=== PATIENT | female | born 1990 | race Caucasian/White ===

== ENCOUNTER 2016-11-07 16:45 | Emergency (ER) | payer OTHER ==
[~2016-11-07] VITALS: Ht 154.9 cm; Wt 53.8 kg
[2016-11-07 17:31] LABS: ADD MIUA? YES; BILIRUBIN NEGATIVE; BLOOD MODERATE; COLOR YELLOW ((YELLOW)); GLUCOSE (STRIP) NEGATIVE; KETONES NEGATIVE; LEUKOCYTES NEGATIVE; NITRITE NEGATIVE; PROTEIN (STRIP) NEGATIVE; SPECIFIC GRAVITY 1.016 (1.000-1.030); UROBILINOGEN 0.2 MG/DL (0.2-1.0)
[2016-11-07 17:41] LABS: BACTERIA RARE /HPF; EPITHELIAL CELLS 2+ /HPF; MUCUS NONE SEEN /LPF; RED BLOOD CELLS 0-5 /HPF (0-5); UCUL ADDED? NO; WHITE BLOOD CELLS 0-5 /HPF (0-5)
[2016-11-07 18:01] LABS: HEMATOCRIT 44.1 % (36.0-46.0); MCH 28.8 PG (29.0-34.0); MCHC 32.4 G/DL (30.0-36.0); MCV 88.7 FL (83-99); MEAN PLAT.VOLUME 9.2 uM^3 (9.5-12.4); PLATELET COUNT 366 K/uL (156-360); RBC DIS.WIDTH-CV 12.5 % (11.8-14.6); RBC DIS.WIDTH-SD 40.3 % (39-53); RED BLOOD COUNT 4.97 M/uL (3.80-5.20); WHITE BLOOD COUNT 8.7 K/uL (4.1-10.2)
[2016-11-07 18:14] LABS: CHLORIDE 101 mEq/L (99-109); POTASSIUM 4.1 mEq/L (3.7-5.4); SODIUM 137 mEq/L (136-147)
[2016-11-07 18:16] LABS: GLUCOSE 71 mg/dL (70-99)
[2016-11-07 18:18] LABS: ANION GAP 9 MEQ/L (2-14); TOTAL BILIRUBIN 0.4 mg/dL (0.0-1.0)
[2016-11-07 18:20] LABS: ALKALINE PHOSPHATASE 63 IU/L (3-129)
[2016-11-07 18:21] LABS: UREA NITROGEN (BUN) 17 mg/dL (9-23)
[2016-11-07 18:23] LABS: LIPASE 28 U/L (1.0-51.0)
[2016-11-07 18:31] LABS: QUANTITATIVE HCG < 4.0 MIU/ML
[2016-11-07 18:33] LABS: GFR ESTIMATE (CALCULATED) > 59 mL/min/
[2016-11-07] MEDS ORDERED: NAPROSYN500 MG PO (20:15)
[2016-11-07 20:35] VITALS: BP 127/68
== END 2016-11-07 20:36 | disposition home or self-care (01) ==
LOC: EME 16:45 → RME 16:45
DX: N83.201 Unspecified ovarian cyst, right side (principal); R31.9 Hematuria, unspecified; Z86.19 Personal history of other infectious and parasitic diseases; F17.200 Nicotine dependence, unspecified, uncomplicated
CPT/HCPCS: 74176; 80053; 81003; 83690; 84702; 85027; 99281; 99284

== ENCOUNTER 2017-09-02 13:22 | Emergency (ER) | payer OTHER ==
[~2017-09-02] VITALS: Ht 157.5 cm; Wt 54.4 kg
[~2017-09-02 13:22] MED LIST: NAPROSYN500 MG PO
[2017-09-02] MEDS ORDERED: DEBROX15 ML LEFT EAR (14:53)
[2017-09-02] MEDS ORDERED: MOTRIN800 MG PO (14:53)
[2017-09-02] MEDS ORDERED: FLONASE16 G1 BOTH NARES (14:53)
[2017-09-02] MEDS ORDERED: AUGMENTIN875 MG PO (14:53)
[2017-09-02 15:23] VITALS: BP 115/73
== END 2017-09-02 15:26 | disposition home or self-care (01) ==
LOC: EME 13:22 → EXP 13:22
DX: R59.0 Localized enlarged lymph nodes (principal); J32.9 Chronic sinusitis, unspecified; H61.22 Impacted cerumen, left ear
CPT/HCPCS: 99281; 99283

== ENCOUNTER 2017-11-03 20:29 | Emergency (ER) | payer OTHER ==
[~2017-11-03] VITALS: Ht 160 cm; Wt 55.7 kg
[~2017-11-03 20:29] MED LIST changes: +AUGMENTIN875 MG PO; +DEBROX15 ML LEFT EAR; +FLONASE16 G1 BOTH NARES; +MOTRIN800 MG PO
[2017-11-03 21:29] LABS: APPEARANCE CLEAR ((CLEAR)); BILIRUBIN NEGATIVE; BLOOD NEGATIVE; COLOR STRAW ((YELLOW)); GLUCOSE (STRIP) NEGATIVE; KETONES NEGATIVE; LEUKOCYTES NEGATIVE; NITRITE NEGATIVE; PROTEIN (STRIP) NEGATIVE; SPECIFIC GRAVITY 1.015 (1.000-1.030); UCUL ADDED? NO; UROBILINOGEN 0.2 MG/DL (0.2-1.0)
[2017-11-03 21:34] LABS: HEMATOCRIT 41.4 % (36.0-46.0); HEMOGLOBIN 14.1 G/DL (11.9-15.5); MCH 29.4 PG (29.0-34.0); MCHC 34.1 G/DL (30.0-36.0); MCV 86.4 FL (83-99); PLATELET COUNT 421 K/uL (156-360); RBC DIS.WIDTH-CV 13.4 % (11.8-14.6); RBC DIS.WIDTH-SD 42.5 % (39-53); RED BLOOD COUNT 4.79 M/uL (3.80-5.20); WHITE BLOOD COUNT 12.9 K/uL (4.1-10.2)
[2017-11-03 21:43] LABS: ALBUMIN 4.6 g/dL (3.2-4.8); CHLORIDE 106 mEq/L (99-109); POTASSIUM 3.9 mEq/L (3.7-5.4); SODIUM 139 mEq/L (136-147)
[2017-11-03 21:46] LABS: GLUCOSE 83 mg/dL (70-99); TOTAL PROTEIN 7.4 g/dL (6.4-8.3)
[2017-11-03 21:47] LABS: TOTAL BILIRUBIN 0.3 mg/dL (0.0-1.0)
[2017-11-03 21:49] LABS: ALKALINE PHOSPHATASE 48 IU/L (3-129); CREATININE 0.8 mg/dL (0.6-1.3); GFR ESTIMATE (CALCULATED) > 59 mL/min/
[2017-11-03 21:50] LABS: UREA NITROGEN (BUN) 11 mg/dL (9-23)
[2017-11-03 21:51] LABS: AST (GOT) 40 IU/L (2-34)
[2017-11-03 21:52] LABS: ALT (GPT) 63 IU/L (3-49)
[2017-11-03 21:58] LABS: QUANTITATIVE HCG 49.9 MIU/ML
[2017-11-04 01:38] VITALS: BP 111/80
== END 2017-11-04 01:38 | disposition home or self-care (01) ==
LOC: EME 20:29
DX: O26.891 Other specified pregnancy related conditions, first trimester (principal); R10.2 Pelvic and perineal pain; Z3A.00 Weeks of gestation of pregnancy not specified; F17.200 Nicotine dependence, unspecified, uncomplicated
CPT/HCPCS: 76705; 76801; 80053; 81003; 84702; 85027; 99281; 99284

== ENCOUNTER 2017-11-20 11:00 | Emergency (ER) | payer OTHER ==
[~2017-11-20] VITALS: Ht 160 cm; Wt 53.9 kg
[2017-11-20 11:39] LABS: HEMATOCRIT 37.2 % (36.0-46.0); HEMOGLOBIN 13.1 G/DL (11.9-15.5); MCH 30.5 PG (29.0-34.0); MCHC 35.2 G/DL (30.0-36.0); MCV 86.7 FL (83-99); PLATELET COUNT 399 K/uL (156-360); RBC DIS.WIDTH-SD 40.7 % (39-53); RED BLOOD COUNT 4.29 M/uL (3.80-5.20); WHITE BLOOD COUNT 13.4 K/uL (4.1-10.2)
[2017-11-20 11:50] LABS: CHLORIDE 109 mEq/L (99-109); POTASSIUM 3.9 mEq/L (3.7-5.4); SODIUM 138 mEq/L (136-147)
[2017-11-20 11:52] LABS: GLUCOSE 75 mg/dL (70-99)
[2017-11-20 11:53] LABS: APPEARANCE SL.HAZY ((CLEAR)); BILIRUBIN NEGATIVE; BLOOD NEGATIVE; COLOR YELLOW ((YELLOW)); GLUCOSE (STRIP) NEGATIVE; KETONES 5; LEUKOCYTES NEGATIVE; NITRITE NEGATIVE; PROTEIN (STRIP) 30
[2017-11-20 11:56] LABS: CREATININE 0.7 mg/dL (0.6-1.3); GFR ESTIMATE (CALCULATED) > 59 mL/min/
[2017-11-20 11:56] LABS: BACTERIA RARE /HPF; CALCIUM OXALATE CRYSTALS 2+ /HPF; EPITHELIAL CELLS 1+ /HPF; MUCUS 1+ /LPF; RED BLOOD CELLS 0-5 /HPF (0-5); WHITE BLOOD CELLS 0-5 /HPF (0-5)
[2017-11-20 11:57] LABS: UREA NITROGEN (BUN) 11 mg/dL (9-23)
[2017-11-20 12:23] LABS: QUANTITATIVE HCG 17711.2 MIU/ML
[2017-11-20 14:32] VITALS: BP 114/69
== END 2017-11-20 14:26 | disposition home or self-care (01) ==
LOC: EME 11:00
PROVIDERS: Nurse Practitioner Family
DX: O20.9 Hemorrhage in early pregnancy, unspecified (principal); R10.2 Pelvic and perineal pain; Z3A.01 Less than 8 weeks gestation of pregnancy; O99.331 Smoking (tobacco) complicating pregnancy, first trimester; F17.200 Nicotine dependence, unspecified, uncomplicated
CPT/HCPCS: 76801; 80048; 81003; 84702; 85027; 99281; 99284